=== PATIENT | male | born 1960 | race Caucasian/White ===

== ENCOUNTER 2022-08-06 11:49 | Outpatient (CLI) | payer OTHER, SELFPAY | END 2022-08-06 11:50 | disposition home or self-care (01) | LOC: NFLDREF 08-10 08:20 | PROVIDERS: Visit Provider Internal Medicine | DX: R97.20 Elevated prostate specific antigen [PSA] (principal) | CPT/HCPCS: 87086 ==

== ENCOUNTER 2022-08-14 08:25 | Outpatient (CLI) | payer OTHER, SELFPAY | END 2022-08-14 08:26 | disposition home or self-care (01) | LOC: NFLDREF 08-15 15:27 | PROVIDERS: Visit Provider Internal Medicine | DX: R97.20 Elevated prostate specific antigen [PSA] (principal) | CPT/HCPCS: 84153 ==

== ENCOUNTER 2022-09-12 11:41 | Outpatient (REF) | payer OTHER, SELFPAY ==
[2022-09-12 13:38] LABS: PSA Diagnostic* 8.95 ng/mL (0.10-4.00)
== END 2022-09-12 11:42 | disposition home or self-care (01) ==
LOC: NPINS 11:41
PROVIDERS: Visit Provider Urology
DX: R97.20 Elevated prostate specific antigen [PSA] (principal)
CPT/HCPCS: 84153

== ENCOUNTER 2022-11-04 13:13 | Outpatient (CLI) | payer OTHER, SELFPAY | END 2022-11-04 13:14 | disposition home or self-care (01) | LOC: NFLDREF 11-05 07:51 | PROVIDERS: PCP Internal Medicine; Referring Provider Internal Medicine; Visit Provider Internal Medicine | DX: R97.20 Elevated prostate specific antigen [PSA] (principal) | CPT/HCPCS: 87086 ==

== ENCOUNTER 2023-02-27 10:16 | Outpatient (CLI) | payer OTHER, SELFPAY ==
--- NOTE | 2023-02-27 11:43 | W.ANESCHARGE ---
Anesthesia Charges Start Date/Time Anesthesia Start Date: 02/27/23 Anesthesia Start Time: 11:15 Stop Date/Time Anesthesia Stop Date: 02/27/23 Anesthesia Stop Time: 11:38
== END 2023-02-27 10:17 | disposition home or self-care (01) ==
LOC: OP CLINIC 10:16
PROVIDERS: PCP Internal Medicine; Visit Provider Surgery
DX: Z12.11 Encounter for screening for malignant neoplasm of colon (principal); K64.8 Other hemorrhoids; K57.30 Diverticulosis of large intestine without perforation or abscess without bleeding
CPT/HCPCS: 00812; 45378; J2704

== ENCOUNTER 2023-05-01 09:19 | Outpatient (CLI) | payer OTHER, SELFPAY | END 2023-05-01 09:20 | disposition home or self-care (01) | LOC: NFLDREF 05-12 16:46 | PROVIDERS: PCP Internal Medicine; Referring Provider Internal Medicine; Visit Provider Internal Medicine | DX: Z12.5 Encounter for screening for malignant neoplasm of prostate (principal); K62.89 Other specified diseases of anus and rectum | CPT/HCPCS: 84153 ==

== ENCOUNTER 2023-07-22 19:43 | Outpatient (CLI) | payer OTHER, SELFPAY ==
--- OUTSIDE RECORDS SUMMARY | 2023-07-22 19:46 | XMS_ITS | Clinical Summary ---
Author Organization [facility] Address [place], [place] [address] Care Team Providers Care Boring Machine Feeder Name Role Phone Pcp, No Primary Care Provider Unavailabl e Andrew Chester MD Unavailable [phone] Allergies No known active allergies Medications Medication [...] Comments Blood Pressure 138/80 04/06/2017 10:53 AM NETWORK LEAD Pulse 54 04/06/2017 10:53 AM NETWORK LEAD Temperature 37 ??C (98.6 ??F) 04/06/2017 10: 53 AM NETWORK LEAD Respiratory Rate - - Oxygen Saturation 98% 04/06/2017 10: 53 AM NETWORK LEAD Inhaled Oxygen Concentration - - Weight 74.2 kg (163 lb 9.6 oz) 04/06/2017 10:53 AM NETWORK LEAD Pt weighed with shoes on. Height - [...] (1 of 2) 01/19/2012 COVID-19 vaccine series (2022- season) 2022 12/24/2021, 02/05/2021, 07/03/2020, Additional history exists Influenza for age 50-64 11/01/2023 12/18/2017 Pneumococcal series for age 6-64 Aged Out No longer eligible based on patient's age to complete this topic Care Teams Boring Machine Feeder Relationship Specialty Start Date End Date Pcp, No . PCP - General 08/18/22 Andrew Chester MD [address] [place] [address] 08/18/22
--- OUTSIDE RECORDS SUMMARY | 2023-07-22 19:46 | XMS_ITS | Data Portability ---
Author Organization [facility], [facility] Address [address] [place] [address] Care Team Providers Care Communications Senior Associate Name Role Phone SHAHZAD NATION Primary Care Provider Assessment No assessment recorded. Plan of Treatment Reminders Order Date Submit Date Provider Last Modified By Organization Details Last Modified Time Details Appointments None recorded . Lab urinalys is, dipstick 2022 023 [email or web address] [facility], [address], [place], [address], 3 11:18:56 Referral None recorded . Procedures None recorded . Surgeries None recorded . Imaging MRI, prostate , w/wo contrast 2022 023 ATHENAFAX Hernandez [facility], [address], [place], [address], 3 12:25:16 Medication Orders ceftriax one 1 gram solution for injectio n 20[email or web address], [address], 3 10:09:30 tamsulos in 0.4 mg capsule 2022 023 [email or web address] [facility], [address] [place] [address], [address], 3 16:49:07 Patient TargetsNo targets recorded. Patient InstructionsNo instructions recorded. Reason for Referral None Reported. Results Created Date Observation Date Name Description Value Unit Range Abnormal Flag LastModifiedBy Organization Detail LastModifiedTime 08/19/1908/18/2022 urina lysis , dipst ick Color-Status Yellow Not Available [facility] [address], [place], [address], 08/18/2022 11:18:37 08/19/19 23 08/18/2022 urina lysis , dipst ick Clarity-Stat us Clear Not Available [facility] [address], [place], [address], 08/18/2022 11:18:37 08/19/19 23 08/18/2022 urina lysis , dipst ick Ketones-Stat us 5 Not Available [facility] [address], [place], [address], 08/18/2022 11:18:37 08/30/19 23 08/27/2022 MRI, prost ate, w/wo contr ast No observ ation record ed. [email or web address] [facility] [address], [place], [address], 09/08/2022 15:31:55 Result Notes None recorded. Procedures Surgical History Date Name Laterality Status Provider Name and Address Organization Details Recorded Time 3 Prostate Biopsy Procedure completed Kennedy Gardiner MD [address] [place] [address],[address] [place] [address], [address], [facility] 10/27/2022 09:53:46 3 Bladder Scan completed Kennedy Gardiner MD [address] [place] [address],[address], [place], [address], [place] [facility] 08/18/2022 11:18:29 Imaging Results Imaging Date Name Status LastModified by Organiz ation Details LastModified Time 08/27/2022 MRI, prostate, w/wo contrast completed [email or web address] [facility] [address], [place], [address], 09/08/2022 15:31:55 Procedure Notes None recorded. Medical [...] Updated DateTime 08/18/2022 175.26 cm 24.4 kg/m2 81504.74 g Kennedy Gardiner MD [address] [place] [address], [phone] 08/18/2022 11:16:53 Social History Question Answer Notes LastModified by Organizat ion Details LastModified Time Tobacco Smoking Status Never Smoker Kennedy Gardiner MD [address] [place] [address],[address], [address], [facility] 08/18/2022 11:17:55 What Was The Date Of Your Most Recent Tobacco Screening? 08/18/2022 [email or web address] Information not available 08/18/2022 Sex: Male Functional Status None recorded. Mental Status None recorded. Family History Nothing Reported. Medical History Condition Response Other Y High Blood Pressure Y Kidney Stones N Lung Disease N Depression N GERD/Acid Reflux N Diabetes N Sexually Transmitted Infection N Bleeding Disorder N Cancer N High Cholesterol Y Heart Disease N Past Encounters Encounter ID Performer Location Encounter Start Date Encounter Closed Date Diagnosis/Indication Diagnosis SNOMED-CT Code [id number] Kennedy Gardiner MD [facility] [address] [place] [address] 08/18/2022 10:33:38 08/26/2022 19:36:59 Prostate specific antigen above reference range [id number] Kennedy Gardiner MD [facility] [address] [place] [address] 10/27/2022 09:16:05 11/01/2022 08:39:09 Prostate specific antigen above reference range 061352144 Lower urin nayeli tract symptoms due to benign prostatic hypertrophy [id number] Health Concerns Section Related Observation LastModified by Organization Detai ls LastModified Time None Recorded Concern Status LastModified by Organization Details LastModified Time None Recorded Advance Directives Directive None Recorded Payers Encounter Date Sequence Insurance Name Policy Number Policy Rico Covered Member ID Rico Member ID Guarantor Name 10/27/2022 1 [employer] - OPEN ACCESS CHOICE ([facility] [place] Darrin Sunshine [id number] Darrin Sunshine 08/18/2022 1 [employer] - OPEN ACCESS CHOICE ([facility] [place] Darrin Sunshine [id number] Darrin Sunshine Notes Date Note Type Note [...] (02/02/17) - 9.39 (07/15/22) Kennedy Gardiner MD [address], [place], [address], [email or web address] [place] [facility] 08/19/2022 21:03:21 10/27/2022 text/html HPI Notes: [...] - no suspicious lesions Kennedy Gardiner MD [address], [place], [address], [facility] 11/06/2022 16:49:41
--- NOTE | 2023-08-18 08:58 | W.PM.SLEEP ---
Sleep Study Details Details Interpreting Provider: Amaury Date of Sleep Study: 07/22/23 Sleep Study Details: STUDY TYPE:? Home unattended ? BMI:? 23.6 ORDERING PROVIDER:Talia Rebolledo INDICATION:? Concern about sleep apnea ? SLEEP SUMMARY:? 512 minutes monitored RESPIRATORY SUMMARY:? AHI 5.7, supine AHI 10, left lateral AHI 2.6, right lateral AHI 0 Low oxygen 88 0.2% of study oxygen less than 90% Snoring 88.1% PERIODIC LIMB MOVEMENTS OF SLEEP:? Not recorded CARDIAC:? Range 39-62, mean 45.1 IMPRESSION:? Mild obstructive sleep apnea with supine position dependency RECOMMENDATION: Treatment options include positional therapy, dental appliance, CPAP and/or airway expansion surgery.
== END 2023-07-22 19:44 | disposition home or self-care (01) ==
LOC: SLEEP 19:44
PROVIDERS: PCP Internal Medicine; Visit Provider Otolaryngology
DX: G47.33 Obstructive sleep apnea (adult) (pediatric) (principal)
CPT/HCPCS: 95806

== ENCOUNTER 2023-07-22 19:44 | Outpatient (CLI) | payer OTHER, SELFPAY ==
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
--- OUTSIDE RECORDS SUMMARY | 2023-06-18 19:48 | XMS_ITS | Clinical Summary ---
Author Name Unknown Organization [facility] Address [place], [place] [address] Care Team Providers Care Proposal Engineer Name Role Phone Pcp, No Primary Care Provider Unavailabl e Andrew Chester MD Unavailable [phone] Allergies No known active allergies Medications Medication Sig Dispensed Refills Start Date End Date Status LIPITOR 10 MG TAB take 1 tablet (10 mg) by oral route once daily 0 09/19/2006 Active ATENOLOL 25 MG TAB take 1 tablet (25 mg) by oral route once daily 0 09/19/2006 Active simvastatin (ZOCOR) 20 mg tablet Take 1 tablet by mouth once daily. 02/05/2017 Active LORazepam (ATIVAN) 0.5 mg tab Take 1 tablet by mouth 2 times daily if needed. 02/05/2017 Active Active Problems Problem Noted Date Diagnosed Date Hypertension 05/07/2013 Hypercholesteremia 05/07/2013 Immunizations Name Administration Dates Next Due AMB Influenza, IIV4 PF (=>6 mos Flulaval,Fluzone Fluarix)(Flu Clinic Only) 12/18/2017 Social History Tobacco Use Types Packs/Day Years Used Date Smoking Tobacco: Never Smokeless Tobacco: Never Tobacco Cessation:Counseling Given: Yes Alcohol Use Standard Drinks/Week Comments Yes 0 (1 standard drink = 0.6 oz pur e alcohol) occassional Sex and Gender Information Value Date Recorded Sex Assigned at Not on file Gender Identity Not on file Sexual Orientation Not on file Obstetrics History Last Filed Vital Signs Vital Sign Reading Time Taken Comments Blood Pressure 138/80 04/06/2017 10:53 AM ASSISTANT CHILD CARE TEACHER Pulse 54 04/06/2017 10:53 AM ASSISTANT CHILD CARE TEACHER Temperature 37 ??C (98.6 ??F) 04/06/2017 10: 53 AM ASSISTANT CHILD CARE TEACHER Respiratory Rate - - Oxygen Saturation 98% 04/06/2017 10: 53 AM ASSISTANT CHILD CARE TEACHER Inhaled Oxygen Concentration - - Weight 74.2 kg (163 lb 9.6 oz) 04/06/2017 10:53 AM ASSISTANT CHILD CARE TEACHER Pt weighed with shoes on. Height - - Body Mass Index - - Plan of Treatment Health Maintenance Due Date Last Done Comments Tdap 1973 Depression screening for age 12+ 1974 HIV for age 15-65 1977 BMI (ht and wt on same day) for age 18+ 01/19/1980 Hepatitis C screening for age 18-79 01/19/1980 Tetanus booster 1982 Colonoscopy through age 75 2007 Lipids for age 45-75 2007 Zoster (shingles) series for age 50+ (1 of 2) 01/19/2012 COVID-19 vaccine series (2022-24 season) 2022 12/24/2021, 02/05/2021, 07/03/2020, Additional history exists Influenza for age 50-64 11/01/2023 12/18/2017 Pneumococcal series for age 6-64 Aged Out No longer eligible based on patient's age to complete this topic Care Teams Proposal Engineer Relationship Specialty Start Date End Date Pcp, No . PCP - General 08/18/22 Andrew Chester MD [address] [place] [address] 08/18/22
--- OUTSIDE RECORDS SUMMARY | 2023-08-21 11:46 | XMS_ITS | Clinical Summary ---
Author Organization [facility] Address [place], [place] [address] Care Team Providers Care Public Relations Assistant Name Role Phone Pcp, No Primary Care Provider Unavailabl e Andrew Chester MD Unavailable Allergies No known active allergies Medications Medication [...] Comments Blood Pressure 138/80 04/06/2017 10:53 AM HELPER SHEAR OPERATOR Pulse 54 04/06/2017 10:53 AM HELPER SHEAR OPERATOR Temperature 37 ??C (98.6 ??F) 04/06/2017 10: 53 AM HELPER SHEAR OPERATOR Respiratory Rate - - Oxygen Saturation 98% 04/06/2017 10: 53 AM HELPER SHEAR OPERATOR Inhaled Oxygen Concentration - - Weight 74.2 kg (163 lb 9.6 oz) 04/06/2017 10:53 AM HELPER SHEAR OPERATOR Pt weighed with shoes on. Height - [...] age to complete this topic Care Teams Public Relations Assistant Relationship Specialty Start Date End Date Pcp, No . PCP - General 08/18/22 Andrew Chester MD [address] [place] [address] 08/18/22
--- OUTSIDE RECORDS SUMMARY | 2023-08-21 11:46 | XMS_ITS | Data Portability ---
Author Organization [facility], [facility] Address [address] [place] [address] Care Team Providers Care Metrology Specialist Name Role Phone SHAHZAD NATION Primary Care Provider Assessment No assessment recorded. Plan of Treatment Reminders Order Date Submit Date Provider Last Modified By Organization Details Last Modified Time Details Appointments None recorded . Lab urinalys is, dipstick 2022 023 [email or web address] [facility], [address], [place], [address], 3 11:18:56 Referral None recorded . Procedures None recorded . Surgeries None recorded . Imaging MRI, prostate , w/wo contrast 2022 [address] [facility], [address], [place], [address], 3 12:25:16 Medication Orders ceftriax one 1 gram solution for injectio n 2022 [email or web address], [address], 3 10:09:30 tamsulos in 0.4 mg capsule 2022 023 [email or web address] [facility], [address] [place] [address], [address], 3 16:49:07 Patient TargetsNo targets recorded. Patient InstructionsNo instructions recorded. Reason for Referral None Reported. Results Created Date Observation Date Name Description Value Unit Range Abnormal Flag LastModifiedBy Organization Detail LastModifiedTime 08/19/1908/18/2022 urina lysis , dipst ick Color-Status Yellow Not Available [facility] [address], [place], [address], 08/18/2022 11:18:37 08/19/19 23 08/18/2022 urina lysis , dipst ick Clarity-Stat us Clear Not Available [facility] [address], [place], [address], 08/18/2022 11:18:37 08/19/19 23 08/18/2022 urina lysis , dipst ick Ketones-Stat us 5 Not Available [facility] [address], [place], [address], 08/18/2022 11:18:37 08/30/19 23 08/27/2022 MRI, prost ate, w/wo contr ast No observ ation record ed. [email or web address] [facility] [address], [place], [address], 09/08/2022 15:31:55 Result Notes None recorded. Procedures Surgical History Date Name Laterality Status Provider Name and Address Organization Details Recorded Time 3 Prostate Biopsy Procedure completed Kennedy Gardiner MD [address] [place] [address],[address] [place] [address], [address], [facility] 10/27/2022 09:53:46 3 Bladder Scan completed Kennedy Gardiner MD [address] [place] [address],[address], [place], [address], [place] [facility] 08/18/2022 11:18:29 Imaging Results Imaging Date Name Status LastModified by Organiz ation Details LastModified Time 08/27/2022 MRI, prostate, w/wo contrast completed [email or web address] [facility] [address], [place], [address], 09/08/2022 15:31:55 Procedure Notes None recorded. Medical [...] Updated DateTime 08/18/2022 175.26 cm 24.4 kg/m2 76003.74 g Kennedy Gardiner MD [address] [place] [address], [address] 08/18/2022 11:16:53 Social History Question Answer Notes LastModified by Organizat ion Details LastModified Time Tobacco Smoking Status Never Smoker Kennedy Gardiner MD [address] [place] [address],[address], [address], [facility] 08/18/2022 11:17:55 What Was The Date [...] Encounter Closed Date Diagnosis/Indication Diagnosis SNOMED-CT Code [id number] Kennedy Gardiner MD [facility] [address] [place] [address] 08/18/2022 10:33:38 08/26/2022 19:36:59 Prostate specific antigen above reference range [id number] Kennedy Gardiner MD [facility] [address] [place] [address] 10/27/2022 09:16:05 11/01/2022 08:39:09 Prostate specific antigen above reference range 904538955 Lower urin nayeli tract symptoms due to benign prostatic hypertrophy 88461523118178 Health Concerns Section Related Observation LastModified by Organization Detai ls LastModified Time None Recorded Concern Status LastModified by Organization Details LastModified Time None Recorded Advance Directives Directive None Recorded Payers Encounter Date Sequence Insurance Name Policy Number Policy Rico Covered Member ID [place] Member ID Guarantor Name 10/27/2022 1 [employer] - OPEN ACCESS CHOICE ([facility] [place]) Darrin Sunshine [id number] Darrin Sunshine 08/18/2022 1 [employer] - OPEN ACCESS CHOICE ([facility] [place] Darrin Sunshine [id number] Darrin Sunshine Notes Date Note Type Note [...] - 9.39 (07/15/22) Kennedy Gardiner MD [address] [facility], [place], [address], [facility] [place] [facility] 08/19/2022 21:03:21 10/27/2022 text/html HPI Notes: [...] no suspicious lesions Kennedy Gardiner MD [address], [place], [address], [facility] 11/06/2022 16:49:41
== END 2023-07-22 19:45 | disposition home or self-care (01) ==
PROVIDERS: PCP Internal Medicine; Visit Provider Internal Medicine
DX: G47.33 Obstructive sleep apnea (adult) (pediatric) (principal)
CPT/HCPCS: 95806

== ENCOUNTER 2024-04-11 09:24 | Outpatient (CLI) | payer BC, SELFPAY | END 2024-04-11 09:25 | disposition home or self-care (01) | LOC: NFLDREF 04-15 02:52 | PROVIDERS: PCP Internal Medicine; Referring Provider Internal Medicine; Visit Provider Internal Medicine | DX: I10 Essential (primary) hypertension (principal); E78.5 Hyperlipidemia, unspecified; R97.20 Elevated prostate specific antigen [PSA]; Z12.5 Encounter for screening for malignant neoplasm of prostate | CPT/HCPCS: 80053; 80061; G0103 ==